=== PATIENT | male | born 1980 | race Caucasian/White ===

== ENCOUNTER 2020-08-06 08:14 | Emergency (ER) | payer SELFPAY ==
[~2020-08-06] VITALS: Ht 185.4 cm; Wt 127.0 kg
[2020-08-06] MEDS ORDERED: OLAN5TAB3 PO (08:35)
[2020-08-06] MEDS ORDERED: HYDROCODONE/ACETAMINOPHEN 5/325MG TABLET PO ONE (08:45)
[2020-08-06] MEDS ORDERED: ONDANSETRON 4MG ODT PO ONE (08:45)
[2020-08-06] MEDS ORDERED: TETANUS, DIPHTHERIA, PERTUSSIS VAC/PF 0.5ML (>7YR OLD) IM ONE (09:00)
[2020-08-06 10:49] VITALS: BP 133/92
[2020-08-06] MEDS ORDERED: TRAM50TA3 MT (11:43)
[2020-08-06] MEDS ORDERED: IBUP-2030 MT (11:43)
== END 2020-08-06 12:15 | disposition home or self-care (01) ==
LOC: ER 08:14
DX: S20.212A Contusion of left front wall of thorax, initial encounter (principal); S50.312A Abrasion of left elbow, initial encounter; Z90.81 Acquired absence of spleen; W18.30XA Fall on same level, unspecified, initial encounter; Y93.89 Activity, other specified; Y92.89 Other specified places as the place of occurrence of the external cause; Y99.8 Other external cause status
CPT/HCPCS: 71250; 72125; 73080; 90471; 90715; 99285; Q0162